=== PATIENT | female | born 1975 | race Asian ===

== ENCOUNTER 2016-07-16 14:59 | Emergency (ER) | payer OTHER ==
[~2016-07-16] VITALS: Ht 175.3 cm; Wt 104.5 kg
[~2016-07-16 14:59] MED LIST: LORA10CA PO; PRE20 PO; RANI150T11 PO
[2016-07-16 15:15] VITALS: BP 147/96; PULSE 92; RESP 16; O2SAT 98
--- NOTE | 2016-07-16 16:07 | DRSVH ---
PROCEDURE: X-RAY RIGHT ELBOW COMPLETE, MINIMUM THREE VIEWS ([id number]) INDICATIONS: pain/deformity post fall 1 week ago TECHNIQUE: 3 views of the elbow were acquired. COMPARISON: None. FINDINGS: Bones: No fractures or dislocations. No suspicious bony lesions. Soft tissues: No elbow joint effusion. No suspicious soft tissue calcifications. IMPRESSION: Normal right elbow. Dictated by: Osman Valenzuela M.D. on 07/16/2016 at 16:05 Approved by: Osman Valenzuela M.D. on 07/16/2016 at 16:05
--- NOTE | 2016-07-16 16:08 | DRSVH ---
PROCEDURE: X-RAY RIGHT WRIST COMPLETE, MINIMUM THREE VIEWS ([id number]) INDICATIONS: pain/deformity post fall 1 week ago TECHNIQUE: 4 views of the wrist were acquired. COMPARISON: None. FINDINGS: Bones: No fractures or dislocations. No suspicious bony lesions. Scaphoid view: No trauma Soft tissues: No suspicious soft tissue calcifications. IMPRESSION: Normal right wrist. Dictated by: Osman Valenzuela M.D. on 07/16/2016 at 16:06 Approved by: Osman Valenzuela M.D. on 07/16/2016 at 16:06
--- NOTE | 2016-07-16 16:38 | ED.REPORT ---
HPI-Extremity Problem Upper Date of Service Jul 16, 2016 ED Provider: Dr. Bess Pt is a 41 y/o female presenting to the ED c/o right wrist pain onset 1 week ago. She fell onto her outstretched right wrist 1 week ago and since then the pain has persisted and developed into radiating pain up and down the arm with associated mild right hand numbness. 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 She denies weakness of the arm. She has no other complaints or concerns. Nursing Notes Stated Complaint: RT ARM INJURY Chief Complaint: Extremity Trauma Nursing Notes Reviewed: Yes Allergies: Coded Allergies: hydroxyzine (Verified Allergy, Severe, Anaphylaxis, 07/16/16) acetaminophen (Verified Adverse Reaction, Intermediate, 07/16/16) uncontrolled shaking ibuprofen (Verified Adverse Reaction, Intermediate, Nausea,Vomiting, ) oxycodone (Verified Adverse Reaction, Intermediate, 07/16/16) uncontrolled shaking midazolam (Verified Adverse Reaction, Unknown, 07/16/16) no amnesia Uncoded Allergies: ZOFRAN (Adverse Reaction, Unknown, Nausea, 07/16/16) Scheduled Loratadine (Claritin) 10 Mg Capsule 20 MG PO DAILY Meloxicam (Mobic) 7.5 Mg Tablet 1-2 TAB PO DAILY Prednisone (PredniSONE) 20 Mg Tablet 20 MG PO DAILY Prednisone (PredniSONE) 20 Mg Tablet 20 MG PO DAILY Ranitidine (Zantac) 150 Mg Tablet 150 MG PO BID General Time Seen by MD: 16:37 Chief Complaint Wrist injury right Hx Obtained From: Patient Arrived By: Walk-in Onset Occurred: 1 week ago Symptom Duration: Since onset Caused by: Accidental, Fall on ground Location: : Wrist right Quality: Painful Severity: Current: Mild Severity: Maximum: Mild Exacerbated by: Range of motion Recent Healthcare: No recent doctor visit Similar Sx Previous: No Past Medical History Past Medical History Healthy Past Surgical History None reported Smoking History Unknown if Ever Smoker Ambulatory Status Independent Review of Systems Musculoskeletal: Reports: Extremity pain Neurologic: Reports: Numbness, Denies: Weakness Complete sys rev & neg: except as marked. Physical Exam Initial Vital Signs Initial VS: Reviewed Head / Eyes: Atraumatic, Normocephalic, PERRL ENT: Mucous membranes moist, Conjunctiva normal, No scleral icterus Neck: Full range of motion Respiratory: No respiratory distress Cardiovascular: Intact distal pulses Abdomen / GI: Soft Lower Extremities: Vascular intact, Neuro intact, No swelling, No tenderness Skin: Warm, Dry, No cyanosis Neurologic: Alert, Oriented, Nonfocal Psychiatric: Mood/affect normal, Behavior normal, Normal thought content General/Constitutional: Awake, Alert, No acute distress, Well appearing, Cooperative, Not toxic appearing Wrist / Hand: Atraumatic, No deformity, Neurologic intact, Vascular intact RUE: Tender over dorsal aspect over distal radial head Positive Tinel's sign Positive Phalen's test Interpretation & Diagnostics X-Ray Interpretation Xray Interpretation: IMPRESSION: Normal right wrist. Dictated by: Osman Valenzuela M.D. on 07/16/2016 at 16:06 Approved by: Osman Valenzuela M.D. on 07/16/2016 at 16:06 Study Performed: 4 view X-Ray Ordered: Wrist right Interpretation / Wet Read by: Interpret - Radiologist Xray Interpretation: IMPRESSION: Normal right elbow. Dictated by: Osman Valenzuela M.D. on 07/16/2016 at 16:05 Approved by: Osman Valenzuela M.D. on 07/16/2016 at 16:05 Study Performed: 3 view X-Ray Ordered: Elbow right Interpretation / Wet Read by: Interpret - Radiologist Re-Eval/Medical Decision Med Decision/Clinical Course 41-year-old female presenting with a fall resulting in pain of the right wrist. On exam she does have some point tenderness over the distal radial head, however her exam does seem to be even more consistent with carpal tunnel syndrome. Have given her a wrist brace and anti-inflammatories and she will follow-up with her primary provider. 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 Informed pt of plan for treatment. Pt understands and agrees with plan for treatment. F/U and RTER warnings given. All questions addressed. Counseled Regarding: Diagnosis, Need for follow-up, When/why to return to ED Discharge & Departure Impression: Primary Impression: Carpal tunnel syndrome of right wrist Additional Impression: Right wrist pain Disposition: Home Discharge Condition All VS Reviewed: Yes Condition: Stable Patient Instructions: Carpal Tunnel Syndrome (ED) Additional Instructions: The x-ray of your wrist and elbow today were normal, there were no signs of fracture. Your clinical examination is consistent with carpal tunnel syndrome. I recommend you take Mobic and use a wrist brace. If your pain persists, contact your primary care doctor for further evaluation. Return to the emergency department for any immediate medical concerns. Referrals: NOPCP (PCP) Vitae Attestation Portions of this note were transcribed by Brandon Ayala. I, Dr. Menjivar personally performed the history, physical exam and medical decision-making; I reviewed and confirmed the accuracy of the information in the transcribed note. Signed by Jennifer Ulrich, 07/16/16 - 1650 Samir Bess DO Jul 16, 2016 16:38 BRADNON AYALA Jul 16, 2016 16:53
[2016-07-16] MEDS ORDERED: MELO7.5T13 PO (17:03)
[2016-07-16 17:23] VITALS: BP 136/99; PULSE 96; O2SAT 96
== END 2016-07-16 17:28 | disposition home or self-care (01) ==
LOC: SED 14:59
DX: G56.01 Carpal tunnel syndrome, right upper limb (principal); W00.0XXA Fall on same level due to ice and snow, initial encounter; Y93.89 Activity, other specified; Y92.89 Other specified places as the place of occurrence of the external cause; Y99.8 Other external cause status; Z88.4 Allergy status to anesthetic agent; Z88.5 Allergy status to narcotic agent; Z88.8 Allergy status to other drugs, medicaments and biological substances